=== PATIENT | female | born 2000 | race Caucasian/White ===

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

== ENCOUNTER 2020-02-13 14:51 | Emergency (ER) | payer OTHER ==
[2020-02-13 15:31] LABS: Appearance,Urine Clear (Clear); Bilirubin,Urine Negative (Negative); Blood,Urine Negative (Negative); Color,Urine Yellow; Glucose,Urine (UA) Negative (Negative); Ketones,Urine Negative (Negative); Leukocyte Esterase,Urine Small (Negative); Nitrite,Urine Negative (Negative); Protein,Urine Negative (Negative); Specific Gravity,Urine 1.015 (1.001-1.035); Urobilinogen,Urine <2.0 mg/dL (<2.0)
--- NOTE | 2020-02-13 15:31 | ED ---
Female Urogenital HPI - General Chief complaint: Vaginal Bleeding Stated complaint: test Time Seen by Provider: 02/13/20 15:06 Source: patient Mode of arrival: ambulatory Limitations: no limitations - History of Present Illness Initial comments: female presenting today for chief complaint of vaginal bleeding yesterday with a positive test 2 days ago. Patient states she has no pain vaginal bleeding states she had a positive test 2 days ago. patient denies any significant nausea or vomiting. denies any pain or current bleeding. denies any significant vaginal discharge concern for sexual transmitted diseases. denies any lightheadedness or presyncope. remaining review of systems negative upon arrival patient appears well signs of acute distress - Related Data Previous Rx's Medication Instructions Recorded Ibuprofen [Motrin] 600 mg PO Q8HR PRN #20 tab 04/22/19 Allergies Allergy/AdvReac Type Severity Reaction Status Date / Time No Known Allergies Allergy Verified 02/13/20 15:02 Review of Systems ROS Statement: Those systems with pertinent positive or pertinent negative responses have been documented in the HPI. ROS Other: All systems not noted in ROS Statement are negative. Past Medical History Past Medical History: No Reported History History of Any Multi-Drug Resistant Organisms: None Reported Past Surgical History: No Surgical Hx Reported Past Psychological History: No Psychological Hx Reported Smoking Status: Never smoker Past Alcohol Use History: None Reported Past Drug Use History: None Reported General Exam - General Exam Comments Initial Comments: General: The patient is awake and alert, in no distress Eye: Pupils are equal, round and reactive to light, extra-ocular movements are intact. No nystagmus. There is normal conjunctiva bilaterally. No signs of icterus. Cardiovascular: There is a regular rate and rhythm. No murmur, rub or gallop is appreciated. Respiratory: Lungs are clear to auscultation, respirations are non-labored, breath sounds are equal. No wheezes, stridor, rales, or rhonchi. Gastrointestinal: Soft, non-distended, non-tender abdomen without masses or organomegaly noted. There is no rebound or guarding present. pelvic: scant discharge, no blood, no pain, os closed Musculoskeletal: Normal ROM, no tenderness. Strength 5/5. Sensation intact. Radial pulses equal bilaterally 2+. Neurological: A&O x 3. CN II-XII intact grossly, There are no obvious motor or sensory deficits. Coordination appears grossly intact. Speech is normal. Skin: Skin is warm and dry and no rashes or lesions are noted. Psychiatric: Cooperative, appropriate mood & affect, normal judgment. Limitations: no limitations Course Vital Signs 02/13/20 02/13/20 15:02 17:39 Temperature 98.6 F 98.1 F Pulse Rate 96 92 Respiratory 18 16 Rate Blood Pressure 124/88 120/78 O2 Sat by Pulse 100 98 Oximetry Medical Decision Making - Medical Decision Making 19yo female presents for vaginal bleeding with positive prexy test. HCG elevated mildly. Patient has FINDINGS CONSISTENT DIFFERENTIAL DIAGNOSIS OF EARLY , THREATENED MISCARRIAGE CANNOT RULE OUT ECTOPIC AT THIS TIME HOWEVER NO OBVIOUS SIGNS SEEN ON THIS ULTRASOUND. PATIENT HAS NO PAIN NO CURRENT BLEEDING with low HCG levels. Period 12/30/2019. Patient will be discharged with OBGYN care and states she is in process of being accepted as a patient [facility]. Patient was educated on risks and DDx including ectopic. I discussed how important it is to return to the ER for new symptoms, pain increasing bleeding, lightheadedness. Patient verbalized understanding and was agreeable to disdhcarge with repeat HCG and close OB f/u. Is to return to ER if OBGYN cannot see her within next week. Dr. Da Silva is agreeable to care plan and discharge. - Lab Data Result diagrams: 02/13/20 15:47 02/13/20 15:47 Lab Results 02/13/20 02/13/20 02/13/20 Range/Units 15:17 15:17 15:47 WBC 7.8 (4.0-11.0) k/uL RBC 4.05 (3.80-5.40) m/uL Hgb 11.7 (11.4-16.0) gm/dL Hct 36.5 (34.0-46.0) % MCV 90.0 (80.0-100.0) fL MCH 28.9 (25.0-35.0) pg MCHC 32.1 (31.0-37.0) g/dL RDW 14.7 (11.5-15.5) % Plt Count 381 (150-450) k/uL Neutrophils % 68 % Lymphocytes % 23 % Monocytes % 5 % Eosinophils % 1 % Basophils % 0 % Neutrophils # 5.4 (1.3-7.7) k/uL Lymphocytes # 1.8 (1.0-4.8) k/uL Monocytes # 0.4 (0-1.0) k/uL Eosinophils # 0.1 (0-0.7) k/uL Basophils # 0.0 (0-0.2) k/uL Manual Slide Review Performed Sodium (137-145) mmol/L Potassium (3.5-5.1) mmol/L Chloride (98-107) mmol/L Carbon Dioxide (22-30) mmol/L Anion Gap mmol/L BUN (7-17) mg/dL Creatinine (0.52-1.04) mg/dL Est GFR (CKD-EPI)AfAm (>60 ml/min/1.73 sqM) Est GFR (CKD-EPI)NonAf (>60 ml/min/1.73 sqM) Glucose (74-99) mg/dL Calcium (8.4-10.2) mg/dL Total Bilirubin (0.2-1.3) mg/dL AST (14-36) U/L ALT (4-34) U/L Alkaline Phosphatase (38-126) U/L Total Protein (6.3-8.2) g/dL Albumin (3.5-5.0) g/dL HCG, Quant mIU/mL Urine Color Yellow Urine Appearance Clear (Clear) Urine pH 6.0 (5.0-8.0) Ur Specific [place] 1.015 (1.001-1.035) Urine Protein Negative (Negative) Urine Glucose (UA) Negative (Negative) Urine Ketones Negative (Negative) Urine Blood Negative (Negative) Urine Nitrite Negative (Negative) Urine Bilirubin Negative (Negative) Urine Urobilinogen <2.0 (<2.0) mg/dL Ur Leukocyte Esterase Small (Negative) Urine RBC 1 (0-5) /hpf Urine WBC 5 (0-5) /hpf Ur Squamous Epith Cells 4 (0-4) /hpf Urine Bacteria Rare H (None) /hpf Urine Mucus Rare H (None) /hpf Urine HCG, Qual Detected (Not Detectd) Trichomonas Ag (Rapid) (Negative) Blood Type Blood Type Recheck Bld Type Recheck Status 02/13/20 02/13/20 02/13/20 Range/Units 15:47 15:47 15:47 WBC (4.0-11.0) k/uL RBC (3.80-5.40) m/uL Hgb (11.4-16.0) gm/dL Hct (34.0-46.0) % MCV (80.0-100.0) fL MCH (25.0-35.0) pg MCHC (31.0-37.0) g/dL RDW (11.5-15.5) % Plt Count (150-450) k/uL Neutrophils % % Lymphocytes % % Monocytes % % Eosinophils % % Basophils % % Neutrophils # (1.3-7.7) k/uL Lymphocytes # (1.0-4.8) k/uL Monocytes # (0-1.0) k/uL Eosinophils # (0-0.7) k/uL Basophils # (0-0.2) k/uL Manual Slide Review Sodium 136 L (137-145) mmol/L Potassium 3.9 (3.5-5.1) mmol/L Chloride 106 (98-107) mmol/L Carbon Dioxide 21 L (22-30) mmol/L Anion Gap 9 mmol/L BUN 10 (7-17) mg/dL Creatinine 0.58 (0.52-1.04) mg/dL Est GFR (CKD-EPI)AfAm >90 (>60 ml/min/1.73 sqM) Est GFR (CKD-EPI)NonAf >90 (>60 ml/min/1.73 sqM) Glucose 78 (74-99) mg/dL Calcium 9.2 (8.4-10.2) mg/dL Total Bilirubin 0.3 (0.2-1.3) mg/dL AST 19 (14-36) U/L ALT 10 (4-34) U/L Alkaline Phosphatase 66 (38-126) U/L Total Protein 7.0 (6.3-8.2) g/dL Albumin 4.5 (3.5-5.0) g/dL HCG, Quant 429.9 mIU/mL Urine Color Urine Appearance (Clear) Urine pH (5.0-8.0) Ur Specific [place] (1.001-1.035) Urine Protein (Negative) Urine Glucose (UA) (Negative) Urine Ketones (Negative) Urine Blood (Negative) Urine Nitrite (Negative) Urine Bilirubin (Negative) Urine Urobilinogen (<2.0) mg/dL Ur Leukocyte Esterase (Negative) Urine RBC (0-5) /hpf Urine WBC (0-5) /hpf Ur Squamous Epith Cells (0-4) /hpf Urine Bacteria (None) /hpf Urine Mucus (None) /hpf Urine HCG, Qual (Not Detectd) Trichomonas Ag (Rapid) (Negative) Blood Type A Positive Blood Type Recheck No Previous Record Bld Type Recheck Status [facility] ONLY 02/13/20 Range/Units 17:27 WBC (4.0-11.0) k/uL RBC (3.80-5.40) m/uL Hgb (11.4-16.0) gm/dL Hct (34.0-46.0) % MCV (80.0-100.0) fL MCH (25.0-35.0) pg MCHC (31.0-37.0) g/dL RDW (11.5-15.5) % Plt Count (150-450) k/uL Neutrophils % % Lymphocytes % % Monocytes % % Eosinophils % % Basophils % % Neutrophils # (1.3-7.7) k/uL Lymphocytes # (1.0-4.8) k/uL Monocytes # (0-1.0) k/uL Eosinophils # (0-0.7) k/uL Basophils # (0-0.2) k/uL Manual Slide Review Sodium (137-145) mmol/L Potassium (3.5-5.1) mmol/L Chloride (98-107) mmol/L Carbon Dioxide (22-30) mmol/L Anion Gap mmol/L BUN (7-17) mg/dL Creatinine (0.52-1.04) mg/dL Est GFR (CKD-EPI)AfAm (>60 ml/min/1.73 sqM) Est GFR (CKD-EPI)NonAf (>60 ml/min/1.73 sqM) Glucose (74-99) mg/dL Calcium (8.4-10.2) mg/dL Total Bilirubin (0.2-1.3) mg/dL AST (14-36) U/L ALT (4-34) U/L Alkaline Phosphatase (38-126) U/L Total Protein (6.3-8.2) g/dL Albumin (3.5-5.0) g/dL HCG, Quant mIU/mL Urine Color Urine Appearance (Clear) Urine pH (5.0-8.0) Ur Specific [place] (1.001-1.035) Urine Protein (Negative) Urine Glucose (UA) (Negative) Urine Ketones (Negative) Urine Blood (Negative) Urine Nitrite (Negative) Urine Bilirubin (Negative) Urine Urobilinogen (<2.0) mg/dL Ur Leukocyte Esterase (Negative) Urine RBC (0-5) /hpf Urine WBC (0-5) /hpf Ur Squamous Epith Cells (0-4) /hpf Urine Bacteria (None) /hpf Urine Mucus (None) /hpf Urine HCG, Qual (Not Detectd) Trichomonas Ag (Rapid) Negative (Negative) Blood Type Blood Type Recheck Bld Type Recheck Status Disposition Clinical Impression: Vaginal bleeding during Disposition: HOME SELF-CARE Condition: Good Instructions (If sedation given, give patient instructions): Threatened Miscarriage (ED) Additional Instructions: Please use medication as discussed. Please follow-up with OBGYN in next 2-3 days, return for pain, increasing bleeding, lightheadedness, back pain, if you feel like passing out or any other symptoms you feel are new-as we cannot rule out ectopic, early , or miscarriag eat this time. repeat HCG in 48 hours. Please return to emergency room if the symptoms increase or worsen or fo r any other concerns. Is patient prescribed a controlled substance at d/c from ED?: No Referrals: None,Stated [Primary Care Provider] - 1-2 days Earnest Barlow MD [STAFF PHYSICIAN] - 1-2 days Adrianne Barry MD [STAFF PHYSICIAN] - 1-2 days Time of Disposition: 17:21
[2020-02-13 15:32] LABS: Bacteria,Urine Rare /hpf; Mucus,Urine Rare /hpf; RBC,Urine 1 /hpf (0-5); Squamous Epithelial Cell,Urine 4 /hpf (0-4); WBC,Urine 5 /hpf (0-5)
[2020-02-13 16:10] LABS: Basophils % (A) 0 %; Eosinophils # (A) 0.1 k/uL (0-0.7); Eosinophils % (A) 1 %; HCT 36.5 % (34.0-46.0); HGB 11.7 gm/dL (11.4-16.0); Lymphocytes # (A) 1.8 k/uL (1.0-4.8); Lymphocytes % (A) 23 %; MCH 28.9 pg (25.0-35.0); MCHC 32.1 g/dL (31.0-37.0); Mean Platelet Volume 7.6; Monocytes # (A) 0.4 k/uL (0-1.0); Monocytes % (A) 5 %; Neutrophils # (A) 5.4 k/uL (1.3-7.7); Neutrophils % (A) 68 %; Platelet Count 381 k/uL (150-450); RBC 4.05 m/uL (3.80-5.40); RDW 14.7 % (11.5-15.5); WBC 7.8 k/uL (4.0-11.0)
[2020-02-13 16:17] LABS: ALT 10 U/L (4-34); AST 19 U/L (14-36); African American GFR (CKD) >90 (>60 ml/min/1.73 sqM); Albumin 4.5 g/dL (3.5-5.0); Alkaline Phosphatase 66 U/L (38-126); Anion Gap 9 mmol/L; Blood Urea Nitrogen 10 mg/dL (7-17); Calcium 9.2 mg/dL (8.4-10.2); Carbon Dioxide 21 mmol/L (22-30); Chloride 106 mmol/L (98-107); Glucose 78 mg/dL (74-99); Non-African American GFR(CKD) >90 (>60 ml/min/1.73 sqM); Potassium 3.9 mmol/L (3.5-5.1); Sodium 136 mmol/L (137-145); Total Bilirubin 0.3 mg/dL (0.2-1.3)
--- NOTE | 2020-02-13 17:10 | US ---
EXAMINATION TYPE: Ultrasound OB <= 14 week fetus DATE OF EXAM: 02/13/2020 4:31 PM COMPARISON: NONE CLINICAL HISTORY: 19-year-old female Vaginal Bleeding in ; vaginal bleeding x 2 days; EXAM PERFORMED: Transabdominal (TA) FINDINGS: EXAM MEASUREMENTS: GESTATIONAL AGE / DATING Physician Established: Not yet established Dates by LMP: (6 weeks/6 days) EDC: 10/02/2020 Dates by First Scan: No previous Dates by Current Scan for: Unable to date by today's study as is too early for machine calculations MATERNAL ANATOMY Uterus: 8.9 x 6.2 x 5.1cm Right Ovary: 4.1 x 2.4 x 2.8cm Left Ovary: 1.5 x 2.2 x 1.7cm Post CDS / Adnexa: free fluid is noted medial to right ovary and in posterior cul de sac = 5.6 x 6.9 x 1.6 x 0.523 = 32.3ml (abnormal free fluid volume being greater than 10.0ml). Presence of corpus luteal cyst: noted in right ovary = 2.4 x 2.3 x 1.7cm Presence of subchorionic bleed: no GESTATION / SURVEY MSD: 0.6cm too early for machine's calculation IUP: single, possible early gestational sac is seen within thick decidual reaction Yolk sac: None. Date of LMP: 12/27/2019 Beta HcG (if available): detected per laboratory information Single gestational sac is noted and is too early for machine's range. Abnormal posterior cul de sac f ree fluid volume. IMPRESSION: 1. Thickened decidual reaction with a small 6 mm fluid locule inside the uterus. No yolk sac or pole seen at this time. Differential considerations include early , failed , and p seudogestational sac relating to a nonvisualized ectopic . Appropriate follow-up recommended . 2. Moderate right adnexal and cul-de-sac free fluid, slightly more than typically seen. 3. A 2.4 cm corpus luteum within the right ovary.
[2020-02-13 17:40] VITALS: BP 120/78; PULSE 92; RESP 16; TEMP 98.1
[2020-02-15 14:39] LABS: C. trachomatis,PCR Positive (Neg,Equiv); Chlamydia trachomatis Source Vagina; N. gonorrhoeae,PCR Negative (Neg,Equiv); Neisseria Source Vagina
== END 2020-02-13 17:39 | disposition home or self-care (01) ==
LOC: EC 14:51
DX: O20.9 Hemorrhage in early pregnancy, unspecified (principal); Z3A.01 Less than 8 weeks gestation of pregnancy
CPT/HCPCS: 36415; 76801; 80053; 81001; 81025; 84702; 85025; 86900; 86901; 87070; 87491; 87591; 87808; 99284

== ENCOUNTER → 2020-02-15 | Outpatient (CLI) | payer OTHER | END | disposition home or self-care (01) | LOC: LABWHC1 13:08 | PROVIDERS: ATTEND Physician Assistant Medical | DX: O20.9 Hemorrhage in early pregnancy, unspecified (principal) | CPT/HCPCS: 36415; 84702 ==

== ENCOUNTER 2020-08-13 19:50 | Outpatient (CLI) | payer OTHER ==
--- NOTE | 2020-08-13 20:50 | US ---
EXAMINATION TYPE: US OB >= 14 wk fetus DATE OF EXAM: 08/13/2020 COMPARISON: None CLINICAL HISTORY: vaginal bleeding vaginal bleeding today TECHNIQUE: Transabdominal (TA) GESTATIONAL AGE / DATING Physician Established: (30 weeks/4 days) EDC: 10/18/20 Dates by LMP: LMP unknown Dates by First Scan: unable to date Dates by Current Scan: (30 weeks/2 days) EDC: 10/20/20 SURVEY IUP: Single PLACENTA: Posterior PREVIA: No Previa POLLY: 11.6 cm Normal CERVICAL LENGTH (transabdominal: norm > 3.0cm): 3.0 cm BIOMETRY PRESENTATION: Vertex LIE: Longitudinal BPD: 7.6 cm 30 weeks / 4 days HC: 28.3 cm 31 weeks / 1 days AC: 24.9 cm 29 weeks / 1 days FL: 5.8 cm 30 weeks / 2 days ESTIMATED WEIGHT IN GRAMS: 1451 grams ESTIMATED WEIGHT IN LBS/OZ: 3 lbs. 3 oz. WEIGHT PERCENTAGE BASED ON ESTABLISHED DATES: 15% HC/AC: 1.14 Normal FL/AC: 23% Normal HEART RATE: 139 bpm RHYTHM: Normal IMPRESSION: Amniotic fluid is adequate. There is no sign of oligohydramnios. I have no old exam to compare.
--- NOTE | 2020-08-13 20:52 | P.PN ---
Progress Note - Text Progress Note Date: 08/13/20 This is a very pleasant 20-year-old at 30 weeks gestation who at approximately 437 and had intercourse and had been bleeding since that time. She relates to me that at about 5:00 she called her physician at [facility] and there was no way for her to get a hold of the position as there is no callback number for the position to hold up. Therefore she called labor and delivery and explained what was going on who transferred her to the emergency room the emergency room physicians transfer her back to labor and delivery in labor and delivery said they would call her back and a half hour but did not. She ryes at approximately 8 PM into labor and delivery here continuing to have vaginal bleeding. Bleeding was noted to be bright red throughout the afternoon and early evening. In labor and delivery she has a category 1 tracing that appears to be reactive particularly for a 30 week baby. An ultrasound was done at bedside showing no prep via and no evidence for abruption. Cervical length was 3 cm and amniotic fluid index was 11. I did come in and evaluate the pat ient myself she is in no acute distress feeling well as no pain no other signs or symptoms. And I did a speculum exam which has no active bleeding very small clot in the back of the vagina was removed and I can see no other areas of laceration or concern. Most likely this is a blood vessel on the cervix at broke during intercourse and she is advised to have no further intercourse to the weekend. She has an appointment with her primary moisture meter operator Dr. Cade on Saturday. I also expressed concern that she has no way to get a hold for physician and it doesn't seem that labor and delivery there was eager to assist her and she needed to bring this up and speak with her physician about this because that is unacceptable from my standpoint that she is unable to speak with some type of physician it professional during an emergency situation. I am especially concerned and another part of the reason that I did come in was that she had a 30 week delivery with her last following spontaneous rupture membranes at approximately 28 weeks. That delivery was done at [facility]. Her past medical history is otherwise unremarkable Past surgical history none Social history negative Family history noncontributory ALLERGIES none On physical and vital signs are otherwise stable and afebrile. Heart regular, lungs clear, extremities without pain. Abdomen is soft there is no contractions and she is otherwise feeling well. Assessment intrauterine with vaginal bleeding following intercourse no evidence for abruption or other concerns bleeding has now stopped Plan discharged home follow up with Dr. Smyth on Saturday
--- NOTE | 2020-10-04 19:11 | P.MSEPDOC ---
Presenting Problems - Arrival Data Date of Arrival on Unit: 08/13/20 Time of Arrival on Unit: 19:50 Mode of Transport: Portable - Complaint OB-Reason for Admission/Chief Complaint: Vaginal Bleeding Disposition - Disposition Discharge Date: 08/13/20 Discharge Time: 20:50 I agree with the RN Medical Screening Exam: Yes Case reviewed; plan agreed upon as documented in EMR&OBIX.: Yes Diagnosis: SPOTTING COMPLICATING , THIRD TRIMESTER
== END 2020-08-13 21:00 | disposition home or self-care (01) ==
LOC: FBPOP 19:50
PROVIDERS: ATTEND Obstetrics & Gynecology
DX: O26.853 Spotting complicating pregnancy, third trimester (principal); Z3A.30 30 weeks gestation of pregnancy
CPT/HCPCS: 59025; 76805; G0463; 99213

== ENCOUNTER 2021-07-14 08:35 | Emergency (ER) | payer OTHER ==
[2021-07-14 08:44] VITALS: RESP 18
[2021-07-14] MEDS ORDERED: SODIUM CHLORIDE 0.9% 1,000 ML IV ONE (08:46)
[2021-07-14 09:17] LABS: Basophils % (A) 0 %; Eosinophils # (A) 0.1 k/uL (0-0.7); Eosinophils % (A) 2 %; HCT 35.5 % (34.0-46.0); HGB 11.6 gm/dL (11.4-16.0); Lymphocytes # (A) 1.6 k/uL (1.0-4.8); Lymphocytes % (A) 26 %; MCH 27.6 pg (25.0-35.0); MCHC 32.8 g/dL (31.0-37.0); MCV 84.3 fL (80.0-100.0); Mean Platelet Volume 7.4; Monocytes # (A) 0.4 k/uL (0-1.0); Monocytes % (A) 6 %; Neutrophils # (A) 3.9 k/uL (1.3-7.7); Neutrophils % (A) 63 %; Platelet Count 479 k/uL (150-450); RBC 4.21 m/uL (3.80-5.40); RDW 15.7 % (11.5-15.5); WBC 6.2 k/uL (3.8-10.6)
[2021-07-14 09:41] LABS: ALT 11 U/L (4-34); AST 21 U/L (14-36); African American GFR (CKD) >90 (>60 ml/min/1.73 sqM); Albumin 4.8 g/dL (3.5-5.0); Alkaline Phosphatase 74 U/L (38-126); Anion Gap 10 mmol/L; Blood Urea Nitrogen 11 mg/dL (7-17); Calcium 9.9 mg/dL (8.4-10.2); Carbon Dioxide 22 mmol/L (22-30); Chloride 107 mmol/L (98-107); Glucose 91 mg/dL (74-99); Non-African American GFR(CKD) >90 (>60 ml/min/1.73 sqM); Sodium 139 mmol/L (137-145); Total Bilirubin 0.5 mg/dL (0.2-1.3); Total Protein 7.8 g/dL (6.3-8.2)
[2021-07-14 09:57] LABS: HCG,Quantitative Serum 7.8 mIU/mL
[2021-07-14 10:00] LABS: Appearance,Urine Clear (Clear); Bacteria,Urine Rare /hpf; Bilirubin,Urine Negative (Negative); Blood,Urine Negative (Negative); Color,Urine Yellow; Glucose,Urine (UA) Negative (Negative); Ketones,Urine Negative (Negative); Leukocyte Esterase,Urine Trace (Negative); Mucus,Urine Many /hpf; Nitrite,Urine Negative (Negative); PH, Urine 5.5 (5.0-8.0); Protein,Urine Trace (Negative); Specific Gravity,Urine 1.029 (1.001-1.035); Squamous Epithelial Cell,Urine 4 /hpf (0-4); Urobilinogen,Urine <2.0 mg/dL (<2.0); WBC,Urine 3 /hpf (0-5)
--- NOTE | 2021-07-14 10:10 | ED ---
Female Urogenital HPI - General Chief complaint: Urogenital Stated complaint: early , cramping Time Seen by Provider: 07/14/21 08:46 Source: patient, RN notes reviewed Mode of arrival: ambulatory Limitations: physical limitation - History of Present Illness Initial comments: 21-year-old female that presents to the emergency department complaining of lower abdominal cramping this one episode. She notes that she is 5 days late for her menstrual cycle and took a home test which was positive. She notes she tried calling her [employer] who told her to come emergency room to get evaluated. Patient was otherwise well-appearing in no apparent distress or pain while sitting up in bed. She notes that she's had 2 other previous pregnancies. She denied any spotting or bleeding. She denied chest pain shortness of breath headache nausea vomiting diarrhea constipation fever fatigue chills. Last Menstrual Period: 06/05/21 - Related Data Home Medications Medication Instructions Recorded Confirmed Pnv No.95/Ferrous Fum/Folic AC 08/13/20 [ Multivitamin Tablet] Allergies Allergy/AdvReac Type Severity Reaction Status Date / Time No Known Allergies Allergy Verified 07/14/21 08:44 Review of Systems ROS Statement: Those systems with pertinent positive or pertinent negative responses have been documented in the HPI. ROS Other: All systems not noted in ROS Statement are negative. Past Medical History Past Medical History: No Reported History History of Any Multi-Drug Resistant Organisms: None Reported Past Surgical History: No Surgical Hx Reported Past Psychological History: No Psychological Hx Reported Smoking Status: Never smoker General Exam Limitations: no limitations General appearance: alert, in no apparent distress Head exam: Present: atraumatic, normocephalic, normal inspection Eye exam: Present: normal appearance, PERRL, EOMI. Absent: scleral icterus, conjunctival injection, periorbital swelling ENT exam: Present: normal exam, mucous membranes moist Neck exam: Present: normal inspection Respiratory exam: Present: normal lung sounds bilaterally. Absent: respiratory distress, wheezes, rales, rhonchi, stridor Cardiovascular Exam: Present: regular rate, normal rhythm, normal heart sounds. Absent: systolic murmur, diastolic murmur, rubs, gallop, clicks Extremities exam: Present: normal inspection, full ROM, normal capillary refill. Absent: tenderness, pedal edema, joint swelling, calf tenderness Neurological exam: Present: alert, oriented X3 Psychiatric exam: Present: normal affect, normal mood Skin exam: Present: warm, dry, intact, normal color. Absent: rash Course Vital Signs 07/14/21 08:37 Temperature 97.4 F L Pulse Rate 94 Respiratory 18 Rate Blood Pressure 116/78 O2 Sat by Pulse 100 Oximetry Medical Decision Making - Medical Decision Making 21-year-old female complaining of abdominal cramping with a positive home test. Labs, 1 L normal saline ordered. Labs show a serum hCG of 7.8, undetected in urine. Rest of labs unremarkable. Patient will be given prescription for repeat hCG in 48 hours. Case discussed with Dr. Zepeda, patient discharge home. - Lab Data Result diagrams: 07/14/21 08:53 07/14/21 08:53 Lab Results 07/14/21 07/14/21 07/14/21 Range/Units 08:53 08:53 08:53 WBC 6.2 (3.8-10.6) k/uL RBC 4.21 (3.80-5.40) m/uL Hgb 11.6 (11.4-16.0) gm/dL Hct 35.5 (34.0-46.0) % MCV 84.3 (80.0-100.0) fL MCH 27.6 (25.0-35.0) pg MCHC 32.8 (31.0-37.0) g/dL RDW 15.7 H (11.5-15.5) % Plt Count 479 H (150-450) k/uL MPV 7.4 Neutrophils % 63 % Lymphocytes % 26 % Monocytes % 6 % Eosinophils % 2 % Basophils % 0 % Neutrophils # 3.9 (1.3-7.7) k/uL Lymphocytes # 1.6 (1.0-4.8) k/uL Monocytes # 0.4 (0-1.0) k/uL Eosinophils # 0.1 (0-0.7) k/uL Basophils # 0.0 (0-0.2) k/uL Sodium 139 (137-145) mmol/L Potassium 4.0 (3.5-5.1) mmol/L Chloride 107 (98-107) mmol/L Carbon Dioxide 22 (22-30) mmol/L Anion Gap 10 mmol/L BUN 11 (7-17) mg/dL Creatinine 0.65 (0.52-1.04) mg/dL Est GFR (CKD-EPI)AfAm >90 (>60 ml/min/1.73 sqM) Est GFR (CKD-EPI)NonAf >90 (>60 ml/min/1.73 sqM) Glucose 91 (74-99) mg/dL Calcium 9.9 (8.4-10.2) mg/dL Total Bilirubin 0.5 (0.2-1.3) mg/dL AST 21 (14-36) U/L ALT 11 (4-34) U/L Alkaline Phosphatase 74 (38-126) U/L Total Protein 7.8 (6.3-8.2) g/dL Albumin 4.8 (3.5-5.0) g/dL HCG, Quant 7.8 mIU/mL Urine Color Urine Appearance (Clear) Urine pH (5.0-8.0) Ur Specific [place] (1.001-1.035) Urine Protein (Negative) Urine Glucose (UA) (Negative) Urine Ketones (Negative) Urine Blood (Negative) Urine Nitrite (Negative) Urine Bilirubin (Negative) Urine Urobilinogen (<2.0) mg/dL Ur Leukocyte Esterase (Negative) Urine WBC (0-5) /hpf Ur Squamous Epith Cells (0-4) /hpf Urine Bacteria (None) /hpf Urine Mucus (None) /hpf Urine HCG, Qual Not Detected (Not Detectd) Blood Type Blood Type Recheck Bld Type Recheck Status 07/14/21 07/14/21 Range/Units 08:53 08:53 WBC (3.8-10.6) k/uL RBC (3.80-5.40) m/uL Hgb (11.4-16.0) gm/dL Hct (34.0-46.0) % MCV (80.0-100.0) fL MCH (25.0-35.0) pg MCHC (31.0-37.0) g/dL RDW (11.5-15.5) % Plt Count (150-450) k/uL MPV Neutrophils % % Lymphocytes % % Monocytes % % Eosinophils % % Basophils % % Neutrophils # (1.3-7.7) k/uL Lymphocytes # (1.0-4.8) k/uL Monocytes # (0-1.0) k/uL Eosinophils # (0-0.7) k/uL Basophils # (0-0.2) k/uL Sodium (137-145) mmol/L Potassium (3.5-5.1) mmol/L Chloride (98-107) mmol/L Carbon Dioxide (22-30) mmol/L Anion Gap mmol/L BUN (7-17) mg/dL Creatinine (0.52-1.04) mg/dL Est GFR (CKD-EPI)AfAm (>60 ml/min/1.73 sqM) Est GFR (CKD-EPI)NonAf (>60 ml/min/1.73 sqM) Glucose (74-99) mg/dL Calcium (8.4-10.2) mg/dL Total Bilirubin (0.2-1.3) mg/dL AST (14-36) U/L ALT (4-34) U/L Alkaline Phosphatase (38-126) U/L Total Protein (6.3-8.2) g/dL Albumin (3.5-5.0) g/dL HCG, Quant mIU/mL Urine Color Yellow Urine Appearance Clear (Clear) Urine pH 5.5 (5.0-8.0) Ur Specific [place] 1.029 (1.001-1.035) Urine Protein Trace H (Negative) Urine Glucose (UA) Negative (Negative) Urine Ketones Negative (Negative) Urine Blood Negative (Negative) Urine Nitrite Negative (Negative) Urine Bilirubin Negative (Negative) Urine Urobilinogen <2.0 (<2.0) mg/dL Ur Leukocyte Esterase Trace H (Negative) Urine WBC 3 (0-5) /hpf Ur Squamous Epith Cells 4 (0-4) /hpf Urine Bacteria Rare H (None) /hpf Urine Mucus Many H (None) /hpf Urine HCG, Qual (Not Detectd) Blood Type A Positive Blood Type Recheck A Pos Bld Type Recheck Status No Disposition Clinical Impression: , Abdominal cramping Disposition: HOME SELF-CARE Condition: Stable Instructions (If sedation given, give patient instructions): Abdominal Pain in (ED) Additional Instructions: Please return to the Emergency Department if symptoms worsen or any other concerns. Follow-up with primary care 1-2 days. Repeat blood drawn and 48 hours. Follow-up with [employer]. Is patient prescribed a controlled substance at d/c from ED?: No Referrals: None,Stated [Primary Care Provider] - 1-2 days Time of Disposition: 10:10
[2021-07-14 10:27] VITALS: BP 102/73; PULSE 74; TEMP 98
== END 2021-07-14 10:24 | disposition home or self-care (01) ==
LOC: EC 08:35
DX: O26.91 Pregnancy related conditions, unspecified, first trimester (principal); R10.30 Lower abdominal pain, unspecified; Z3A.00 Weeks of gestation of pregnancy not specified
CPT/HCPCS: 36415; 80053; 81001; 81025; 84702; 85025; 86900; 86901; 96360; 99284

== ENCOUNTER → 2021-07-17 | Outpatient (CLI) | payer OTHER | END | disposition home or self-care (01) | LOC: LABWHC1 11:40 | PROVIDERS: ATTEND Physician Assistant Medical | DX: O20.0 Threatened abortion (principal); Z3A.00 Weeks of gestation of pregnancy not specified | CPT/HCPCS: 36415; 84702 ==

== ENCOUNTER 2022-01-24 18:18 | Emergency (ER) | payer OTHER ==
[2022-01-24 18:25] VITALS: BP 100/66; PULSE 94; RESP 20; TEMP 98.2
--- NOTE | 2022-01-24 20:58 | ED ---
General Adult HPI - General Chief complaint: Upper Respiratory Infection Stated complaint: need work note for covid+ Time Seen by Provider: 01/24/22 20:39 Source: patient Mode of arrival: ambulatory Limitations: no limitations - History of Present Illness Initial comments: Patient is a 21-year-old female who presents to the emergency department for COVID-19 testing. Patient reports congestion. Patient was exposed to COVID-19 by her mom. Patient took an at home test which was positive. No chest pain, shortness of breath, or other concerns. - Related Data Home Medications Medication Instructions Recorded Confirmed Pnv No.95/Ferrous Fum/Folic AC 08/13/20 [ Multivitamin Tablet] Allergies Allergy/AdvReac Type Severity Reaction Status Date / Time No Known Allergies Allergy Verified 01/24/22 18:25 Review of Systems ROS Statement: Those systems with pertinent positive or pertinent negative responses have been documented in the HPI. ROS Other: All systems not noted in ROS Statement are negative. Past Medical History Past Medical History: No Reported History History of Any Multi-Drug Resistant Organisms: None Reported Past Surgical History: No Surgical Hx Reported Past Psychological History: No Psychological Hx Reported Smoking Status: Never smoker Past Alcohol Use History: None Reported Past Drug Use History: None Reported General Exam Limitations: no limitations General appearance: alert, in no apparent distress Eye exam: Present: normal appearance, PERRL, EOMI. Absent: scleral icterus, conjunctival injection, periorbital swelling Respiratory exam: Present: normal lung sounds bilaterally. Absent: respiratory distress, wheezes, rales, rhonchi, stridor Cardiovascular Exam: Present: regular rate, normal rhythm, normal heart sounds. Absent: systolic murmur, diastolic murmur, rubs, gallop, clicks GI/Abdominal exam: Present: soft, normal bowel sounds. Absent: distended, tenderness, guarding, rebound, rigid Neurological exam: Present: alert, oriented X3, CN II-XII intact Psychiatric exam: Present: normal affect, normal mood Course Vital Signs 01/24/22 18:23 Temperature 98.2 F Pulse Rate 94 Respiratory 20 Rate Blood Pressure 100/66 O2 Sat by Pulse 99 Oximetry Medical Decision Making - Medical Decision Making This is a 21-year-old female presenting for COVID-19 testing. Thorough history and examination were performed. Patient is well-appearing and in no apparent distress. Vitals are within normal limits. Patient tested positive today with at home test. She reports congestion but otherwise feels well. Patient was tested in triage which is negative. Results discussed with patient. Patient informed that this could be a false negative. I did offer patient repeat test as well as influenza test and patient declined. Patient does not meet criteria for COVID-19 antibody treatment. Patient states for the most part she feels well and was sent here by her work for a note. Dr. Saleem is my attending. - Lab Data Lab Results 01/24/22 Range/Units 18:29 Coronavirus (PCR) Not Detected (Not Detectd) Disposition Clinical Impression: Upper respiratory infection Disposition: HOME SELF-CARE Condition: Good Instructions (If sedation given, give patient instructions): Upper Respiratory Infection (ED) Additional Instructions: Please test for COVID-19 at home and if positive again once quarantine at home for 5 days. Follow-up with primary care provider in one to 2 days. Return to the emergency department if you experience new, concerning, or worsening symptoms Is patient prescribed a controlled substance at d/c from ED?: No Referrals: None,Stated [Primary Care Provider] - 1-2 days Time of Disposition: 20:58
== END 2022-01-24 21:01 | disposition home or self-care (01) ==
LOC: EC 18:18
DX: J06.9 Acute upper respiratory infection, unspecified (principal); Z20.822 Contact with and (suspected) exposure to COVID-19
CPT/HCPCS: 87635

== ENCOUNTER 2023-09-15 19:15 | Inpatient (IN) | payer OTHER ==
[2023-09-15] MEDS ORDERED: PENICILLIN G POTASSIUM 5,000,000 UNIT in DEXTROSE 5% IN WATER 100 ML IVPB STA ×2 (20:13)
[2023-09-15] MEDS ORDERED: TERBUTALINE 1 MG/ML VIAL SQ PRN (20:13)
[2023-09-15] MEDS ORDERED: METHYLERGONOVINE 0.2 MG/ML 1 ML AMP IM PRN (20:13)
[2023-09-15] MEDS ORDERED: miSOPROStoL 200 MCG TAB PO PRN (20:13)
[2023-09-15] MEDS ORDERED: OXYTOCIN 10 UNIT/ML 1 ML VIAL IM PRN (20:13)
[2023-09-15] MEDS ORDERED: TRANEXAMIC 1,000 MG/100ML-NACL 1,000 MG in EMPTY BAG 1 BAG IV PRN (20:13)
[2023-09-15] MEDS ORDERED: CARBOPROST TROMETHAMINE 250 MCG/ML 1 ML AMP IM PRN (20:13)
[2023-09-15] MEDS ORDERED: LIDOCAINE 0.5% (PF) 5 MG/ML (50 ML SDV) SQ PRN (20:13)
[2023-09-15] MEDS ORDERED: OXYTOCIN 30 UNITS/500 ML NS 30 UNIT in SALINE 1 500ML.BAG IV SCH (20:15)
[2023-09-15] MEDS: LACTATED RINGERS 1,000 ML IV SCH (20:42)
[2023-09-15 20:59] LABS: Anisocytosis Slight; Basophils % (A) 0 %; Eosinophils % (A) 0 %; HCT 27.6 % (34.0-46.0); HGB 8.7 gm/dL (11.4-16.0); Hypochromasia Marked; Lymphocytes # (A) 1.7 k/uL (1.0-4.8); Lymphocytes % (A) 17 %; MCH 24.8 pg (25.0-35.0); MCHC 31.5 g/dL (31.0-37.0); MCV 78.8 fL (80.0-100.0); Mean Platelet Volume 8.1; Monocytes # (A) 0.4 k/uL (0-1.0); Monocytes % (A) 4 %; Neutrophils # (A) 7.6 k/uL (1.3-7.7); Neutrophils % (A) 77 %; Platelet Count 450 k/uL (150-450); RDW 16.1 % (11.5-15.5); WBC 9.9 k/uL (3.8-10.6)
--- NOTE | 2023-09-16 01:21 | P.HPOB ---
History of Present Illness H&P Date: 09/16/23 Chief Complaint: Labor at 36-5/7 weeks This is a 23-year-old 4 para 0-12 woman who has an estimated due date of 10/08/2023 based on 20 week ultrasound. She presents at 36-5/7 weeks gestation in spontaneous active labor. She has a history of 2 previous deliveries at 33 weeks in 2019 and in 2020. She has significant iron deficiency anemia and has received iron infusions during this . Admission hemoglobin is 8.7. She denies any active vaginal bleeding or leakage of fluids. Upon initial evaluation in labor and delivery triage cervix is 5 cm dilated and she is regularly ashley. She is therefore admitted. Obstetric history: 20 1932 week , 3 lbs. 5 oz. 2132 weeks 5 lbs. 4 oz. 2021 spontaneous miscarriage in the first trimester. Laboratory data: Blood type A+, antibody screen negative, rubella immune, VDRL nonreactive, hepatitis B surface antigen negative, HIV negative, hepatitis C negative, group B strep negative, glucose tolerance testing within normal limits, group B strep negative Past medical history: Iron deficiency anemia. Past surgical history none. Family history noncontributory. Review of Systems All systems: negative Past Medical History Past Medical History: Blood Disorder Additional Past Medical History / Comment(s): IRON DEFICIENCY ANEMIA. History of Any Multi-Drug Resistant Organisms: None Reported Past Surgical History: No Surgical Hx Reported Past Anesthesia/Blood Transfusion Reactions: No Reported Reaction Past Psychological History: No Psychological Hx Reported Smoking Status: Never smoker Past Alcohol Use History: None Reported Past Drug Use History: None Reported Medications and Allergies Home Medications Medication Instructions Recorded Confirmed Type Pnv No.95/Ferrous Fum/Folic AC 1 tab PO DAILY 08/13/20 09/15/23 History [ Multivitamin Tablet] Ferrous Sulfate [Iron] 1 tab PO DAILY 09/15/23 09/15/23 History Allergies Allergy/AdvReac Type Severity Reaction Status Date / Time No Known Allergies Allergy Verified 08/08/23 12:02 Exam Vital Signs Temp Pulse Resp BP Pulse Ox 09/15/23 20:13 98.8 F 71 16 122/73 09/15/23 19:36 96.9 F L 81 16 115/78 100 Intake and Output 09/15/23 09/15/23 09/16/23 14:59 22:59 06:59 Other: # Voids 1 Weight 39.009 kg Results Result Diagrams: 09/15/23 20:39 Abnormal Lab Results - Last 24 Hours (Table) 09/15/23 Range/Units 20:39 RBC 3.50 L (3.80-5.40) m/uL Hgb 8.7 L (11.4-16.0) gm/dL Hct 27.6 L (34.0-46.0) % MCV 78.8 L (80.0-100.0) fL MCH 24.8 L (25.0-35.0) pg RDW 16.1 H (11.5-15.5) % Assessment and Plan (1) 36 to 37 weeks gestation of Current Visit: Yes Status: Acute Code(s): AMR3182 - SNOMED Code(s): 113792900 (2) Spontaneous onset of labor Current Visit: Yes Status: Acute Code(s): DYU7831 - SNOMED Code(s): 16667724 (3) Anemia Current Visit: Yes Status: Acute Code(s): D64.9 - ANEMIA, UNSPECIFIED SNOMED Code(s): 656162420 Plan: 23-year-old 4 para 0-12 woman admitted at 36-5/7 weeks gestation in spontaneous active labor. She is Rh+ and group B strep negative. She may have an epidural anesthetic upon request. Anticipate normal spontaneous vaginal delivery. heart tones are currently reassuring.
[2023-09-16] MEDS ORDERED: SIMETHICONE 80 MG CHEWABLE PO PRN (03:34)
[2023-09-16] MEDS ORDERED: HYDROCORTISONE 2.5% RECTAL CREAM 30 GM TUBE RECTAL PRN (03:34)
[2023-09-16] MEDS ORDERED: LANOLIN CREAM 5 GM TUBE TOPICAL PRN (03:34)
[2023-09-16] MEDS ORDERED: diphenhydrAMINE 50 MG/ML 1 ML VIAL IVP PRN ×2 (03:34)
[2023-09-16] MEDS ORDERED: diphenhydrAMINE 25 MG CAP PO PRN (03:34)
[2023-09-16] MEDS ORDERED: BENZOCAINE/MENTHOL SPRAY 1 GM/SPRAY AEROSOL TOPICAL PRN (03:34)
[2023-09-16] MEDS ORDERED: diphenhydrAMINE 50 MG CAP PO PRN (03:34)
[2023-09-16] MEDS ORDERED: ZOLPIDEM 5 MG TAB PO PRN (03:34)
--- NOTE | 2023-09-16 03:34 | P.PROBDLV ---
Vaginal Delivery Note - . Vaginal Delivery Note: Findings: Male infant in the direct occiput posterior position with Apgars of 8 at 1 minute and 9 at 5 minutes weighing 5 pounds 9.8 ounces, 2545 g. Intact, three-vessel cord placenta. EBL 100 mL's. Delivery summary: This is a 23-year-old 4 para 0212 woman who presented in spontaneous active labor at 36-6/7 weeks' gestation. Her had been complicated by iron deficiency anemia. Following admission she did progress to 9 cm dilated. At that time artificial rupture of membranes is undertaken and clear fluid was noted. She then rapidly progressed to complete cervical dilation with urge to push. She had an approximately 1 hour second stage of labor. With she was repositioned prepped and draped in the modified Luanne position. With additional maternal effort the head delivered from the direct occiput posterior position. The rest the delivered rapidly onto the field. The nose and mouth were bulb suctioned. The infant was placed on the maternal abdomen. The cord was clamped and cut. Apgars were 8 at 1 minute and 9 at 5 minutes. An intact three-vessel cord placenta was then expressed after a rapid third stage of labor. The uterus was massaged and was noted to be firm below the level of the umbilicus. The vagina and cervix were inspected and no lacerations were noted. The patient received Pitocin following the third stage of labor. Both mother and were doing well post delivery in the room. All counts correct.
[2023-09-16] MEDS ORDERED: PENICILLIN G POTASSIUM 2,500,000 UNIT in DEXTROSE 5% IN WATER 100 ML IVPB SCH ×2 (04:00)
[2023-09-16] MEDS: LACTATED RINGERS 1,000 ML IV SCH (05:07)
[2023-09-16] MEDS: SENNOSIDES-DOCUSATE SODIUM 1 EACH TAB PO SCH (09:47)
[2023-09-16] MEDS ORDERED: SODIUM FERRIC GLUCONAT-SUCROSE 125 MG in SODIUM CHLORIDE 0.9% 100 ML IVPB ONE (12:15)
[2023-09-17 01:22] VITALS: RESP 16
[2023-09-17] MEDS: SENNOSIDES-DOCUSATE SODIUM 1 EACH TAB PO SCH ×2 (01:51→08:45)
[2023-09-17 05:56] LABS: Anisocytosis Slight; Basophils % (A) 0 %; Eosinophils # (A) 0.1 k/uL (0-0.7); Eosinophils % (A) 1 %; HCT 25.7 % (34.0-46.0); HGB 7.9 gm/dL (11.4-16.0); Hypochromasia Marked; Lymphocytes # (A) 1.9 k/uL (1.0-4.8); Lymphocytes % (A) 16 %; MCH 24.4 pg (25.0-35.0); MCHC 30.7 g/dL (31.0-37.0); MCV 79.4 fL (80.0-100.0); Mean Platelet Volume 7.5; Monocytes # (A) 0.5 k/uL (0-1.0); Monocytes % (A) 5 %; Neutrophils # (A) 8.7 k/uL (1.3-7.7); Neutrophils % (A) 76 %; Platelet Count 381 k/uL (150-450); RBC 3.24 m/uL (3.80-5.40); RDW 16.3 % (11.5-15.5); WBC 11.5 k/uL (3.8-10.6)
--- NOTE | 2023-09-17 07:01 | P.DS ---
Providers Date of admission: 09/15/23 19:58 Expected date of discharge: 09/17/23 Attending physician: Radha Carrillo MD Primary care physician: Stated None Hospital Course: Ms. Mathur is a 23 year old now who is day #1 s/p spontaneous vaginal delivery at 36 weeks. Deliver was uncomplicated and her course has been notable for acute blood loss anemia. She did receive a dose of IV iron yesterday. The patient is doing well this morning and had no acute events overnight. She has no complaints this morning. She reports minimal lochia, passing flatus, voiding without difficulty, ambulating, and eating/drinking without nausea or vomiting. doing well at bedside, s/p circumcision. She denies chest pain, shortness of breathing, fevers, or chills overnight. She denies pain or swelling in the legs. restrictions are reviewed with the patient including pelvic rest for 6 weeks. The patient is encouraged to call the office if she experiences any heavy bleeding, foul- smelling discharge, breast complaints, or any if she has any other concerns. She will follow up in the office with in 6 weeks for exam. All questions are answered. Assessment: 23 year old now PPD#1 s/p vaginal delivery at 36 weeks Patient Condition at Discharge: Good Plan - Discharge Summary New Discharge Prescriptions: New Ibuprofen [Motrin] 600 mg PO Q6HR PRN #30 tab PRN Reason: Mild Pain (Scale 1 To 3) Acetaminophen Tab [Tylenol] 650 mg PO Q6H PRN #30 tab PRN Reason: Mild Pain (Scale 1 To 3) Ferrous Sulfate [Iron (65 MG Elemental)] 325 mg PO DAILY #30 tab No Action Pnv No.95/Ferrous Fum/Folic AC [ Multivitamin Tablet] 1 tab PO DAILY Ferrous Sulfate [Iron] 1 tab PO DAILY Discharge Medication List Pnv No.95/Ferrous Fum/Folic AC [ Multivitamin Tablet] 1 tab PO DAILY 08/13/20 [History] Ferrous Sulfate [Iron] 1 tab PO DAILY 09/15/23 [History] Acetaminophen Tab [Tylenol] 650 mg PO Q6H PRN #30 tab 09/17/23 [Rx] Ferrous Sulfate [Iron (65 MG Elemental)] 325 mg PO DAILY #30 tab 09/17/23 [Rx] Ibuprofen [Motrin] 600 mg PO Q6HR PRN #30 tab 09/17/23 [Rx] Follow up Appointment(s)/Referral(s): Radha Carrillo MD [STAFF PHYSICIAN] - 6 Weeks Activity/Diet/Wound Care/Special Instructions: Instructions 1. Do not begin any exercise program for 3 weeks. 2. Do not resume sexual relations for 6 weeks or longer if uncomfortable. 3. You may take tub baths or showers at any time. 4. You may use tampons if desired after 6 weeks. 5. Keep any areas repaired with stitches clean and dry. 6. If you are not nursing, wear a good fitting, supportive bra during the day and limit fluid intake for at least 1 week to prevent breast engorgement. 7. Call the office, , within the next week to make appointment for your 6 week checkup if it has not already been made. 8. Report any of the following occurrences to the doctor promptly: a. Heavy, excessive bleeding b. Chills, fever c. Burning or frequency of urination d. Pain or redness and breasts if nursing e. Increasing pain or swelling of vulva (stitches). In addition to the above instructions, the following additional should be followed: 1. No heavy lifting or straining (exercising) until after 6 week checkup. 2. Keep abdominal incision clean and dry: You may wear a dressing if more comfortable. 3. Make office appointment for 2 weeks after delivery date.. Discharge Disposition: HOME SELF-CARE
[2023-09-17 08:42] VITALS: BP 102/64; PULSE 70; TEMP 98.2
== END 2023-09-17 13:00 | disposition home or self-care (01) | DRG 560 ==
LOC: FBPOP 19:15 → 4FBP 19:58
PROVIDERS: ADMIT Obstetrics & Gynecology; ATTEND Obstetrics & Gynecology
PROC: 10E0XZZ Delivery of Products of Conception, External Approach (ICD-10-PCS; principal; 2023-09-16)
DX: O60.14X0 Preterm labor third trimester with preterm delivery third trimester, not applicable or unspecified (principal); D62 Acute posthemorrhagic anemia; D50.9 Iron deficiency anemia, unspecified; O99.02 Anemia complicating childbirth; Z3A.36 36 weeks gestation of pregnancy; Z37.0 Single live birth
CPT/HCPCS: 59025; 84112; 85025; 86850; 86900; 86901; 88307; 99213

== ENCOUNTER 2024-10-01 07:38 | Outpatient (CLI) | payer OTHER ==
[2024-10-01 08:43] VITALS: BP 120/77; PULSE 82; RESP 16; TEMP 98.6
[2024-10-01 09:10] LABS: Basophils % (A) 0 %; Eosinophils % (A) 0 %; HCT 25.2 % (34.0-46.0); HGB 7.8 gm/dL (11.4-16.0); Hypochromasia Marked; Lymphocytes # (A) 0.5 k/uL (1.0-4.8); Lymphocytes % (A) 5 %; MCH 24.6 pg (25.0-35.0); MCHC 31.1 g/dL (31.0-37.0); MCV 79.2 fL (80.0-100.0); Mean Platelet Volume 7.9; Monocytes # (A) 0.4 k/uL (0-1.0); Monocytes % (A) 5 %; Neutrophils # (A) 7.8 k/uL (1.3-7.7); Neutrophils % (A) 88 %; Platelet Count 317 k/uL (150-450); RBC 3.18 m/uL (3.80-5.40); RDW 14.3 % (11.5-15.5); WBC 8.9 k/uL (3.8-10.6)
[2024-10-01 09:36] LABS: Appearance,Urine Clear (Clear); Bilirubin,Urine Negative (Negative); Blood,Urine Negative (Negative); Color,Urine Colorless; Glucose,Urine (UA) Negative (Negative); Ketones,Urine Negative (Negative); Leukocyte Esterase,Urine Negative (Negative); Nitrite,Urine Negative (Negative); PH, Urine 6.5 (5.0-8.0); Protein,Urine Negative (Negative); Specific Gravity,Urine 1.006 (1.001-1.035); Urobilinogen,Urine <2.0 mg/dL (<2.0)
[2024-10-01 09:49] LABS: Amphetamine Screen,Urine Not Detected (NotDetected); Barbiturate Screen,Urine Not Detected (NotDetected); Benzodiazepines Screen,Urine Not Detected (NotDetected); Cocaine Screen,Urine Not Detected (NotDetected); Methadone Screen, Urine Not Detected (NotDetected); Opiate Screen,Urine Not Detected (NotDetected); Oxycodone Screen, Urine Not Detected (NotDetected); Phencyclidine Screen,Urine Not Detected (NotDetected); Tricyclic Antidepressant,Urine Not Detected (NotDetected); Urn Cannabinoid Scrn Not Detected (NotDetected)
[2024-10-01 15:35] LABS: Hepatitis B Surface Antigen Nonreactive (Nonreactive)
[2024-10-01 16:57] LABS: HIV 2 AB Non-Reactive (Non-Reactive); HIV AB P24 Non-Reactive (Non-Reactive); HIV P24 AG Non-Reactive (Non-Reactive)
[2024-10-02 14:35] LABS: N. gonorrhoeae,PCR Negative (Negative)
[2024-10-02 14:41] LABS: C. trachomatis,PCR Negative (Negative)
--- NOTE | 2024-10-23 23:57 | P.MSEPDOC ---
Presenting Problems - Arrival Data Date of Arrival on Unit: 10/01/24 Time of Arrival on Unit: 07:38 Mode of Transport: Ambulatory - Complaint OB-Reason for Admission/Chief Complaint: Rule Out PROM Comment: pt had gush of brown fluid at 0600 this am Medical History - Information : 4 Para: 3 Term: 0 : 3 Abortions: Spontaneous or Elective: 0 Number of Living Children: 3 - Gestational Age Gestational Age by ANDERSON (wks/days): 31 Weeks and 2 Days - History Complications: No Care, Prior Review of Systems - Review of Systems Constitutional: No problems Breast: No problems ENT: No problems Cardiovascular: No problems Respiratory: No problems Gastrointestinal: No problems Genitourinary: No problems Musculoskeletal: No problems Neurological: No problems Skin: No problems Vital Signs - Temperature Temperature: 98.6 F Temperature Source: Temporal Artery Scan - Pulse Brachial Pulse Rate: 82 Pulse Assessment Method: Automatic Cuff - Respirations Respiratory Rate: 16 Oxygen Delivery Method: Room Air O2 Sat by Pulse Oximetry: 99 - Blood Pressure Right Arm Blood Pressure: 120/77 Blood Pressure Mean: 91 Blood Pressure Source: Automatic Cuff Medical Screen Scoring - Cervical Exam Dilation (cm): 0 Effacement (%): 0 Station: -3 Membranes: Intact - Uterine Contractions Frequency From (mins): 0 Frequency To (mins): 0 - Assessment - Baby A Baseline FHR: 130 Heart Rate - NICHD Category: Category I (Normal) NST: Reactive Physician Notification - Physician Notified Physician Notified Date: 10/01/24 Physician Notified Time: 10:20 Physician: Earnest Barlow New Order Received: Yes Maternal Triage Index - Maternal Triage Index Presenting for scheduled procedure w/no complaint: No - Stat/Priority 1 Stat Priority 1: No - Urgent/Priority 2 Urgent Priority 2: Yes Provider Notified: Earnest Barlow Provider Notified Time: 08:41 Criteria Met for Priority 2: 31.2 suspected PROM Disposition - Disposition OB Disposition: Triage, Discharge to home Discharge Date: 10/01/24 Discharge Time: 10:25 I agree with the RN Medical Screening Exam: Yes Physician's MSE Comment: I have neither seen nor examined the patient. Case reviewed; plan agreed upon as documented in EMR&OBIX.: Yes Diagnosis: RELATED CONDITIONS, UNSPECIFIED, THIRD TRIMESTER
== END 2024-10-01 10:25 ==
LOC: FBPOP 07:38
PROVIDERS: ATTEND Obstetrics & Gynecology
DX: O26.93 Pregnancy related conditions, unspecified, third trimester (principal); Z3A.31 31 weeks gestation of pregnancy
CPT/HCPCS: 59025; 84112; 86900; 86901; 82731; 86762; 85025; 86850; 87340; 81003; 87491; 87591; 86780; 80306; 87390; G0463; 99213

== ENCOUNTER 2024-11-23 16:52 | Inpatient (IN) | payer OTHER ==
[2024-11-23] MEDS ORDERED: hydrALAZINE HCL 20 MG/ML 1 ML VIAL IVP PRN (17:38)
[2024-11-23] MEDS: LACTATED RINGERS 500 ML IV ONE (17:45)
[2024-11-23] MEDS: LABETALOL 5 MG/ML VIAL MDV IVP PRN ×3 (17:47→18:12)
[2024-11-23 17:55] LABS: Anisocytosis Slight; Basophils % (A) 0 %; Eosinophils % (A) 0 %; HGB 8.9 gm/dL (11.4-16.0); Hypochromasia Marked; Lymphocytes # (A) 2.3 k/uL (1.0-4.8); Lymphocytes % (A) 23 %; MCH 23.9 pg (25.0-35.0); MCHC 30.5 g/dL (31.0-37.0); MCV 78.3 fL (80.0-100.0); Mean Platelet Volume 8.1; Microcytosis Slight; Monocytes # (A) 0.4 k/uL (0-1.0); Monocytes % (A) 4 %; Neutrophils # (A) 6.6 k/uL (1.3-7.7); Neutrophils % (A) 68 %; Platelet Count 440 k/uL (150-450); RDW 18.8 % (11.5-15.5); WBC 9.7 k/uL (3.8-10.6)
[2024-11-23 17:58] LABS: INR 0.8 (<1.2); Prothrombin Time 9.6 sec (10.0-12.5)
[2024-11-23 18:00] LABS: ALT 26 U/L (4-34); AST 42 U/L (14-36); African American GFR (CKD) >90 (>60 ml/min/1.73 sqM); Blood Urea Nitrogen 11 mg/dL (7-17); Glucose 82 mg/dL (74-99); LDH 355 U/L (120-246); Non-African American GFR(CKD) >90 (>60 ml/min/1.73 sqM); Uric Acid 6.5 mg/dL (3.7-7.4)
[2024-11-23 19:36] LABS: Appearance,Urine Clear (Clear); Bilirubin,Urine Negative (Negative); Blood,Urine Trace (Negative); Color,Urine Colorless; Glucose,Urine (UA) Negative (Negative); Ketones,Urine Negative (Negative); Leukocyte Esterase,Urine Negative (Negative); Mucus,Urine Rare /hpf; Nitrite,Urine Negative (Negative); Protein,Urine 3+ (Negative); RBC,Urine <1 /hpf (0-5); Specific Gravity,Urine 1.011 (1.001-1.035); Squamous Epithelial Cell,Urine 2 /hpf (0-4); Urobilinogen,Urine <2.0 mg/dL (<2.0); WBC,Urine 2 /hpf (0-5)
[2024-11-23 19:56] LABS: Amphetamine Screen,Urine Not Detected (NotDetected); Barbiturate Screen,Urine Not Detected (NotDetected); Benzodiazepines Screen,Urine Not Detected (NotDetected); Cocaine Screen,Urine Not Detected (NotDetected); Creatinine,Urine Random 64.1 mg/dL; Methadone Screen, Urine Not Detected (NotDetected); Opiate Screen,Urine Not Detected (NotDetected); Oxycodone Screen, Urine Not Detected (NotDetected); Phencyclidine Screen,Urine Not Detected (NotDetected); Tricyclic Antidepressant,Urine Not Detected (NotDetected); Urn Cannabinoid Scrn Not Detected (NotDetected)
[2024-11-23] MEDS: LACTATED RINGERS 500 ML IV SCH (20:00)
[2024-11-23] MEDS: LABETALOL 200 MG TAB PO STA (20:33)
[2024-11-23] MEDS ORDERED: LACTATED RINGERS 1,000 ML IV SCH (21:15)
[2024-11-24] MEDS: LABETALOL 100 MG TAB PO STA (01:42)
[2024-11-24 03:24] LABS: Hepatitis B Surface Antigen Nonreactive (Nonreactive)
[2024-11-24] MEDS ORDERED: LIDOCAINE 0.5% (PF) 5 MG/ML (50 ML SDV) SQ PRN (05:21)
[2024-11-24] MEDS ORDERED: miSOPROStoL 200 MCG TAB PO PRN (05:21)
[2024-11-24] MEDS ORDERED: OXYTOCIN 10 UNIT/ML 1 ML VIAL IM PRN (05:21)
[2024-11-24] MEDS ORDERED: METHYLERGONOVINE 0.2 MG/ML 1 ML AMP IM PRN (05:21)
[2024-11-24] MEDS ORDERED: CARBOPROST TROMETHAMINE 250 MCG/ML 1 ML AMP IM PRN (05:21)
[2024-11-24] MEDS ORDERED: miSOPROStoL 200 MCG TAB RECTAL PRN (05:21)
[2024-11-24] MEDS ORDERED: TRANEXAMIC 1,000 MG/100ML-NACL 1,000 MG in EMPTY BAG 1 BAG IV PRN (05:21)
[2024-11-24] MEDS ORDERED: TERBUTALINE 1 MG/ML VIAL SQ PRN (05:21)
[2024-11-24 05:22] LABS: HIV 2 AB Non-Reactive (Non-Reactive); HIV AB P24 Non-Reactive (Non-Reactive); HIV P24 AG Non-Reactive (Non-Reactive)
[2024-11-24] MEDS ORDERED: OXYTOCIN 30 UNITS/500 ML NS 30 UNIT in SALINE 1 500ML.BAG IV SCH (05:30)
[2024-11-24] MEDS: AMPICILLIN 2,000 MG in SODIUM CHLORIDE 0.9% 100 ML IVPB STA (05:57)
[2024-11-24] MEDS: OXYTOCIN 30 UNITS/500 ML NS 30 UNIT in SALINE 1 500ML.BAG IV SCH (06:30)
--- NOTE | 2024-11-24 07:43 | P.HPOB ---
History of Present Illness H&P Date: 11/24/24 Chief Complaint: elevated BP 24 year old presents at 39 weeks by 6 week US done at [facility] presents with complaints of swelling in the feet. She has had no care. When she presented heart tones were category 1, she is ashley irregularly, cervix is dilated to 4 cm, 80% effaced, -2 station. Blood pressures were very high up to 170s over 100s. She was started on labetalol protocol which did start to help bring the blood pressures down. Preeclamptic labs were also drawn. Most labs were normal except for a very elevated PC ratio. Patient denies headache, vision changes, nausea or right upper quadrant pain. Review of Systems All systems: negative Constitutional: Denies chills, Denies fever Eyes: denies blurred vision, denies pain Ears, nose, mouth and throat: Denies headache, Denies sore throat Cardiovascular: Denies chest pain, Denies shortness of breath Respiratory: Denies cough Gastrointestinal: Denies abdominal pain, Denies diarrhea, Denies nausea, Denies vomiting Genitourinary: Denies dysuria, Denies hematuria Musculoskeletal: Denies myalgias Integumentary: Denies pruritus, Denies rash Neurological: Denies numbness, Denies weakness Psychiatric: Denies anxiety, Denies depression Endocrine: Denies fatigue, Denies weight change Past Medical History Past Medical History: Blood Disorder Additional Past Medical History / Comment(s): IRON DEFICIENCY ANEMIA. History of Any Multi-Drug Resistant Organisms: None Reported Past Surgical History: No Surgical Hx Reported Past Anesthesia/Blood Transfusion Reactions: No Reported Reaction Past Psychological History: No Psychological Hx Reported Smoking Status: Never smoker Past Alcohol Use History: None Reported Past Drug Use History: None Reported Medications and Allergies Home Medications Medication Instructions Recorded Confirmed Type No Known Home Medications 11/23/24 11/23/24 History Allergies Allergy/AdvReac Type Severity Reaction Status Date / Time No Known Allergies Allergy Verified 11/23/24 17:35 Exam Osteopathic Statement: *. No significant issues noted on an osteopathic structural exam other than those noted in the History and Physical/Consult. Vital Signs Temp Pulse Resp BP Pulse Ox 11/23/24 17:34 98.4 F 67 18 175/108 99 Intake and Output 11/23/24 11/24/24 11/24/24 22:59 06:59 14:59 Other: # Voids 1 1 Weight 43.545 kg Heart: Regular rate and rhythm Lungs: Clear to auscultation bilaterally Abdomen: Soft, nontender Extremities: Negative Homans sign, 2+ out of 4 DTR Results Result Diagrams: 11/23/24 15:35 11/23/24 17:34 Abnormal Lab Results - Last 24 Hours (Table) 11/23/24 11/23/24 11/23/24 Range/Units 15:35 17:34 17:34 RBC 3.70 L (3.80-5.40) m/uL Hgb 8.9 L (11.4-16.0) gm/dL Hct 29.0 L (34.0-46.0) % MCV 78.3 L (80.0-100.0) fL MCH 23.9 L (25.0-35.0) pg MCHC 30.5 L (31.0-37.0) g/dL RDW 18.8 H (11.5-15.5) % PT (10.0-12.5) sec AST 42 H (14-36) U/L Lactate Dehydrogenase 355 H (120-246) U/L Urine Protein (Negative) Urine Blood (Negative) Urine Mucus (None) /hpf Rubella IgG Antibody 104.00 H (0.00-9.00) IU/mL 11/23/24 11/23/24 Range/Units 17:34 19:15 RBC (3.80-5.40) m/uL Hgb (11.4-16.0) gm/dL Hct (34.0-46.0) % MCV (80.0-100.0) fL MCH (25.0-35.0) pg MCHC (31.0-37.0) g/dL RDW (11.5-15.5) % PT 9.6 L (10.0-12.5) sec AST (14-36) U/L Lactate Dehydrogenase (120-246) U/L Urine Protein 3+ H (Negative) Urine Blood Trace H (Negative) Urine Mucus Rare H (None) /hpf Rubella IgG Antibody (0.00-9.00) IU/mL Assessment and Plan (1) 39 weeks gestation of Current Visit: Yes Status: Acute Code(s): Z3A.39 - 39 WEEKS GESTATION OF SNOMED Code(s): 98886633 (2) Preeclampsia Current Visit: Yes Status: Acute Code(s): O14.90 - UNSPECIFIED PRE- ECLAMPSIA, UNSPECIFIED TRIMESTER SNOMED Code(s): 346580603 (3) No care in current Current Visit: Yes Status: Acute Code(s): O09.30 - SUPRVSN OF PREG W INSU FFICIENT ANTENAT CARE, UNSP TRIMESTER SNOMED Code(s): 511503570 Plan: 1. Admit to family birthplace 2. Control blood pressures with labetalol 3. Induction of labor 4. After delivery will start magnesium sulfate for 24 hours
[2024-11-24] MEDS ORDERED: diphenhydrAMINE 50 MG/ML 1 ML VIAL IVP PRN (08:39)
[2024-11-24] MEDS ORDERED: ZOLPIDEM 5 MG TAB PO PRN (08:39)
[2024-11-24] MEDS ORDERED: LANOLIN CREAM 1 GM TUBE TOPICAL PRN (08:39)
[2024-11-24] MEDS ORDERED: diphenhydrAMINE 25 MG CAP PO PRN (08:39)
[2024-11-24] MEDS ORDERED: SIMETHICONE 80 MG CHEWABLE PO PRN (08:39)
[2024-11-24] MEDS ORDERED: BENZOCAINE/MENTHOL SPRAY 1 GM/SPRAY AEROSOL TOPICAL PRN (08:39)
[2024-11-24] MEDS ORDERED: diphenhydrAMINE 50 MG CAP PO PRN (08:39)
[2024-11-24] MEDS ORDERED: HYDROCORTISONE 2.5% RECTAL CREAM 30 GM TUBE RECTAL PRN (08:39)
--- NOTE | 2024-11-24 08:39 | P.PROBDLV ---
Vaginal Delivery Note - . Vaginal Delivery Note: Service 11/24/2024 Findings: Viable female delivered at 805, weight of 4 pounds 15 ounces. 24-year-old 4 para 0303 that presented to labor and delivery at 39-0/7 weeks with complaints of increased lower extremity swelling. Patient had no prior care. Patient's blood pressures were significantly elevated in severe range. Patient was admitted to labor and delivery and the labetalol pathway was initiated. Blood pressures did improve with labetalol pathway. Patient was given oral labetalol through the night. Patient made slow progress through the night and was noted to be 5 cm this morning. Amniotomy was performed at 719 and clear fluid was obtained. Patient made quick progress toward complete dilation and began pushing. Patient had a normal spontaneous vaginal delivery of a viable female infant at 805, weight of 4 pounds 15 ounces, Apgars of 9 and 9 at 1 and 5 minutes respectively. Umbilical cord was doubly clamped and cut placenta was delivered spontaneously intact with a three-vessel cord being noted. No vaginal lacerations were appreciated on inspection of the vaginal vault. Uterus was noted to be firm and below the umbilicus. Patient and infant tolerated delivery well and are resting comfortably. Estimated blood loss 100 cc All counts were to be correct x 2 at the end of delivery.
[2024-11-24] MEDS: MAGNESIUM SULFATE-WATER PMX 4 GM in WATER FOR INJECTION 1 100ML.BAG IVPB ONE (09:14)
[2024-11-24] MEDS: LABETALOL 100 MG TAB PO SCH (09:14)
[2024-11-24] MEDS: MAGNESIUM SULFATE-WATER PMX 20 GM in WATER FOR INJECTION 1 500ML.BAG IV SCH (09:38)
[2024-11-24] MEDS: IBUPROFEN 800 MG TAB PO SCH (11:57)
[2024-11-24] MEDS: ACETAMINOPHEN TAB 500 MG TAB PO SCH (12:26)
[2024-11-24 15:55] VITALS: BMI 18.7
[2024-11-24] MEDS: LACTATED RINGERS 1,000 ML IV SCH (17:12)
[2024-11-24] MEDS ORDERED: ACETAMINOPHEN IV (For NPO) 650 MG in EMPTY BAG 1 BAG IVPB PRN (19:55)
[2024-11-24] MEDS: SENNOSIDES-DOCUSATE SODIUM 1 EACH TAB PO SCH (19:56)
[2024-11-24] MEDS: diphenhydrAMINE 50 MG/ML 1 ML VIAL IVP PRN (20:06)
[2024-11-24] MEDS: AMPICILLIN 1,000 MG in SODIUM CHLORIDE 0.9% 50 ML IVPB SCH (20:54)
[2024-11-24] MEDS: ONDANSETRON 4 MG/2 ML VIAL IVP PRN (22:44)
[2024-11-25 06:35] LABS: Anisocytosis Slight; Basophils % (A) 0 %; Eosinophils % (A) 0 %; HCT 27.5 % (34.0-46.0); HGB 7.9 gm/dL (11.4-16.0); Hypochromasia Marked; Lymphocytes # (A) 1.6 k/uL (1.0-4.8); Lymphocytes % (A) 12 %; MCH 22.9 pg (25.0-35.0); MCHC 28.6 g/dL (31.0-37.0); Mean Platelet Volume 8.1; Microcytosis Slight; Monocytes # (A) 0.5 k/uL (0-1.0); Monocytes % (A) 4 %; Neutrophils # (A) 11.1 k/uL (1.3-7.7); Neutrophils % (A) 83 %; Platelet Count 345 k/uL (150-450); RBC 3.43 m/uL (3.80-5.40); RDW 18.9 % (11.5-15.5); WBC 13.5 k/uL (3.8-10.6)
[2024-11-25 06:52] LABS: ALT 18 U/L (4-34); AST 27 U/L (14-36); African American GFR (CKD) >90 (>60 ml/min/1.73 sqM); Blood Urea Nitrogen 4 mg/dL (7-17); LDH 386 U/L (120-246); Non-African American GFR(CKD) >90 (>60 ml/min/1.73 sqM); Uric Acid 5.5 mg/dL (3.7-7.4)
--- NOTE | 2024-11-26 08:27 | P.DS ---
Providers Date of admission: 11/23/24 19:23 Expected date of discharge: 11/26/24 Attending physician: Lalitha Berkowitz Primary care physician: Stated None - Discharge Diagnosis(es) (1) 39 weeks gestation of Current Visit: Yes Status: Resolved (2) Preeclampsia Current Visit: Yes Status: Acute (3) No care in current Current Visit: Yes Status: Acute Hospital Course: Patient presented at 39 weeks with elevated blood pressures. She was diagnosed with preeclampsia and delivered by induction of labor. She then had magnesium sulfate for 24 hours her blood pressures did come down with this. Her blood pressures are now 130s to 140s over 80s to 90s. Patient continues to deny headache vision changes right upper quadrant pain. She will be discharged home day #2 in stable condition to follow-up with me in a few weeks to check her blood pressure. Plan - Discharge Summary New Discharge Prescriptions: New Ibuprofen [Motrin] 800 mg PO Q8H #30 tab Discharge Medication List Ibuprofen [Motrin] 800 mg PO Q8H #30 tab 11/26/24 [Rx] Follow up Appointment(s)/Referral(s): Lalitha Berkowitz DO [Doctor of Osteopathic Medicine] - 01/05/25 1:15 pm Discharge Disposition: HOME SELF-CARE
[2024-11-27 08:59] VITALS: RESP 16
[2024-11-27 18:03] VITALS: BP 148/92; PULSE 72; TEMP 97.8
== END 2024-11-27 18:38 | disposition home or self-care (01) | DRG 560 ==
LOC: FBPOP 16:52 → 4FBP 19:23
PROVIDERS: ADMIT Obstetrics & Gynecology; ATTEND Obstetrics & Gynecology
PROC: 3E033VJ Introduction of Other Hormone into Peripheral Vein, Percutaneous Approach (ICD-10-PCS; principal; 2024-11-24)
PROC: 10907ZC Drainage of Amniotic Fluid, Therapeutic from Products of Conception, Via Natural or Artificial Opening (ICD-10-PCS; principal; 2024-11-24)
PROC: 10E0XZZ Delivery of Products of Conception, External Approach (ICD-10-PCS; principal; 2024-11-24)
DX: O14.94 Unspecified pre-eclampsia, complicating childbirth (principal); D50.9 Iron deficiency anemia, unspecified; Z37.0 Single live birth; Z3A.39 39 weeks gestation of pregnancy
CPT/HCPCS: 59025; 80306; 81001; 82565; 82570; 82947; 83615; 84156; 84450; 84460; 84520; 84550; 85025; 85384; 85610; 86762; 86780; 86850; 86900; 86901; 87340; 87390; 88307; 96365; 96366; 96367; 96376; 99215

== ENCOUNTER 2024-12-25 10:30 | Day surgery (SDC) | payer OTHER | END 2024-12-25 11:28 | disposition home or self-care (01) | LOC: CATHCVL 10:30 | PROVIDERS: ATTEND Specialist | DX: N73.9 Female pelvic inflammatory disease, unspecified (principal); D72.829 Elevated white blood cell count, unspecified | CPT/HCPCS: 36410; 76937; 81025; C1751; J0696 ==

== ENCOUNTER → 2024-12-29 | Outpatient (CLI) | payer OTHER ==
[2024-12-29 21:24] LABS: Basophils # (A) 0.05 X 10*3/uL (0.00-0.10); Basophils % (A) 0.6 %; Eosinophils # (A) 0.16 X 10*3/uL (0.04-0.35); Eosinophils % (A) 1.9 %; HCT 32.5 % (37.2-46.3); HGB 9.3 g/dL (12.0-15.0); Lymphocytes % (A) 25.4 %; MCH 25.7 pg (27.0-32.0); MCHC 28.6 g/dL (32.0-37.0); MCV 89.8 FL (80.0-97.0); Mean Platelet Volume 9.4 FL (9.5-12.2); Monocytes # (A) 0.52 X 10*3/uL (0.20-1.00); Monocytes % (A) 6.3 %; NRBC Per 100 WBC 0.02 X 10*3/uL (0.00-0.01); Neutrophils # (A) 5.33 X 10*3/uL (1.80-7.70); Neutrophils % (A) 64.4 %; Platelet Count 943 X 10*3/uL (140-440); RBC 3.62 X 10*6/uL (4.10-5.20); RBC Morphology Normal (Normal); RDW 19.4 % (11.5-14.5); WBC 8.28 X 10*3/uL (4.50-10.00)
[2024-12-29 21:29] LABS: Erythrocyte Sedimentation Rate 56 mm/Hr (0-20)
[2024-12-29 21:37] LABS: Blood Urea Nitrogen 3.7 mg/dL (9.0-27.0); Glucose 79 mg/dL (70-110); Potassium 4.3 mmol/L (3.5-5.5); Sodium 142 mmol/L (135-145)
[2024-12-29 21:38] LABS: ALT 12 U/L (8-44); AST 15 U/L (13-35); Albumin 3.6 g/dL (3.8-4.9); Albumin/Globulin Ratio 1.38 Ratio (1.60-3.17); Alkaline Phosphatase 93 U/L (41-126); Calcium 9.2 mg/dL (8.7-10.3); Carbon Dioxide 25.3 mmol/L (21.6-31.8); Chloride 104 mmol/L (96-109); Globulin 2.6 g/dL (1.6-3.3); Total Bilirubin <0.2 mg/dL (0.3-1.2); Total Protein 6.2 g/dL (6.2-8.2)
== END | disposition home or self-care (01) ==
LOC: LABPRL 13:03
PROVIDERS: ATTEND Specialist
DX: K65.1 Peritoneal abscess (principal); N73.0 Acute parametritis and pelvic cellulitis
CPT/HCPCS: 80053; 85025; 85652; 86140